=== PATIENT | female | born 1955 ===

== ENCOUNTER 2020-08-04 13:41 | Inpatient (IN) | payer MEDICAID ==
[~2020-08-04] VITALS: Ht 177.8 cm; Wt 88.6 kg
[2020-08-04 16:18] VITALS: BP 122/70
[2020-08-04] MEDS ORDERED: PLEASE ENTER ALLERGIES MC SCH (17:30)
[2020-08-04] MEDS ORDERED: LORazepam 2 MG/ML, 1ML IVPush PRN (17:30)
[2020-08-04] MEDS ORDERED: PLEASE ENTER HEIGHT AND WEIGHT MC SCH (17:30)
[2020-08-04] MEDS ORDERED: ONDANSETRON 2MG/ML, 2ML IVPush PRN (17:30)
[2020-08-04] MEDS ORDERED: hydrALAzine 20 MG/ML, 1ML IVPush PRN (17:30)
[2020-08-04] MEDS ORDERED: PROMETHAZINE 25 MG/ML, 1ML IM PRN (17:30)
[2020-08-04 18:25] VITALS: BP 126/74
[2020-08-04] MEDS: CEFTRIAXONE PMX 2GM/50ML 50 ML IVPB SCH (18:28)
[2020-08-04] MEDS: NICOTINE 14MG/24 HR PATCH.TD24 TD SCH (18:29)
[2020-08-04 18:57] LABS: INTERNATIONAL NORMALIZED RATIO 1.29 (0.93-1.1); PROTHROMBIN TIME 13.7 Seconds (9.6-11.5)
[2020-08-04] MEDS: SPIRONOLACTONE 25 MG TABLET PO SCH (19:51)
[2020-08-04] MEDS: LACTULOSE 10 GM/15 ML UDC PO SCH (19:51)
[2020-08-04] MEDS: RIFAXIMIN 550 MG TABLET PO SCH (19:51)
[2020-08-04] MEDS: CARVEDILOL 3.125 MG TABLET PO SCH (19:51)
[2020-08-05 01:02] VITALS: BP 147/86
[2020-08-05 04:25] LABS: MEAN CORPUSCULAR HEMOGLOBIN 34.2 pg (27.0-34.8); MEAN CORPUSCULAR HGB CONC 33.3 g/dL (32.4-35.8); PLATELET COUNT 77 x10^3/uL (130-400); RED BLOOD COUNT 3.42 x10^6/uL (3.82-5.3); RED CELL DISTRIBUTION WIDTH 16.7 % (9.6-15.2)
[2020-08-05 04:36] LABS: ALANINE AMINOTRANSFERASE 34 U/L (12-78); ALBUMIN 2.4 g/dL (3.4-5.0); ANION GAP 6 mmol/L (5-15); CHLORIDE 105 mmol/L (98-107); CREATININE 0.55 mg/dL (0.55-1.02)
[2020-08-05 04:44] LABS: ALKALINE PHOSPHATASE 165 U/L (45-117); BILIRUBIN,TOTAL 4.8 mg/dL (0.2-1.0); CALCIUM 7.8 mg/dL (8.5-10.1); CHOL/HDL RATIO 15.7; CHOLESTEROL, TOTAL 141 mg/dL (140-239); HDL CHOL % 6 % (28-40); HDL CHOLESTEROL (DIRECT) 9 mg/dL (40-60); LDL CHOLESTEROL,CALCULATED 86 mg/dL (54-169); LDL/HDL RATIO 9.6 (0.5-3.0); TOTAL PROTEIN 6.1 g/dL (6.4-8.2); TRIGLYCERIDES 229 mg/dL (50-200); VLDL CHOLESTEROL 46 mg/dL (0-25)
[2020-08-05 06:01] LABS: BAND#(MANUAL) 0.08 x10^3/uL; BANDS%(MANUAL) 5 % (0-7); EOS#(MANUAL) 0.05 x10^3/uL (0.0-0.4); EOS% (MANUAL) 3 % (1-7); LYMPH#(MANUAL) 0.32 x10^3/uL (1-3.4); LYMPHS% (MANUAL) 20 % (22-44); MONOS#(MANUAL) 0.21 x10^3/uL (0.3-2.7); MONOS% (MANUAL) 13 % (2-9); MYELOCYTES# (MANUAL) 0.02 x10^3/uL (0-0); MYELOCYTES% (MANUAL) 1 % (0-0); SEG#(MANUAL) 0.93 x10^3/uL (1.8-6.8); SEGS% (MANUAL) 58 % (42-75)
[2020-08-05 06:02] LABS: <PLATELET ESTIMATE> DECREASED; <PLT MORPHOLOGY> NORMAL PLT MORPH; ANISOCYTOSIS 1+
[2020-08-05 06:03] LABS: POLYCHROMASIA 1+
[2020-08-05] MEDS ORDERED: PANTOPRAZOLE 40MG TABLET PO SCH (07:30)
[2020-08-05 08:18] VITALS: BP 124/77
[2020-08-05] MEDS ORDERED: SPIRONOLACTONE 25 MG TABLET PO SCH (09:00)
[2020-08-05] MEDS ORDERED: FUROSEMIDE 20 MG/2 ML IV SCH (09:00)
[2020-08-05] MEDS: MULTIVITAMIN 1 TABLET PO SCH (09:51)
[2020-08-05] MEDS: LACTULOSE 10 GM/15 ML UDC PO SCH ×3 (09:51→20:22)
[2020-08-05] MEDS: THIAMINE 100MG TABLET PO SCH (09:51)
[2020-08-05] MEDS: FUROSEMIDE 20 MG/2 ML IV SCH (09:51)
[2020-08-05] MEDS: SPIRONOLACTONE 25 MG TABLET PO SCH (09:52)
[2020-08-05] MEDS: CARVEDILOL 3.125 MG TABLET PO SCH ×2 (09:53→20:22)
[2020-08-05] MEDS: RIFAXIMIN 550 MG TABLET PO SCH ×2 (09:53→20:22)
[2020-08-05 13:20] VITALS: BP 120/18
[2020-08-05] MEDS ORDERED: MAGNESIUM SULFATE PMX 2GM/50ML 50 ML IV ONE (14:00)
[2020-08-05] MEDS ORDERED: MAGNESIUM SULFATE PMX 2GM/50ML 50 ML ONE (14:05)
[2020-08-05] MEDS ORDERED: GADOTERATE 7.5 MMOL/15ML SYR ONE (15:48)
[2020-08-05] MEDS: K-PHOS NEUTRAL 250MG TAB PO SCH ×2 (16:42→20:22)
[2020-08-05] MEDS: CEFTRIAXONE PMX 2GM/50ML 50 ML IVPB SCH (18:13)
[2020-08-05] MEDS: NICOTINE 14MG/24 HR PATCH.TD24 TD SCH (18:13)
[2020-08-05 19:20] VITALS: BP 123/76
[2020-08-06 02:19] VITALS: BP 132/93
[2020-08-06 05:03] LABS: BASOPHILS % (AUTO) 1 % (0-1); EOSINOPHILS % (AUTO) 0 % (1-7); LYMPHOCYTES % (AUTO) 19 % (22-44); MEAN CORPUSCULAR HEMOGLOBIN 34.1 pg (27.0-34.8); MEAN CORPUSCULAR HGB CONC 33.2 g/dL (32.4-35.8); MEAN PLATELET VOLUME 9.8 fL (7.4-10.4); MONOCYTES % (AUTO) 18 % (2-9); NEUTROPHILS % (AUTO) 63 % (42-75); PLATELET COUNT 82 x10^3/uL (130-400); RED BLOOD COUNT 3.27 x10^6/uL (3.82-5.3)
[2020-08-06 05:12] LABS: ALBUMIN 2.2 g/dL (3.4-5.0); ANION GAP 4 mmol/L (5-15); CALCIUM 7.9 mg/dL (8.5-10.1); CHLORIDE 105 mmol/L (98-107)
[2020-08-06 05:16] LABS: ALANINE AMINOTRANSFERASE 36 U/L (12-78); ALKALINE PHOSPHATASE 157 U/L (45-117); BILIRUBIN,TOTAL 5.1 mg/dL (0.2-1.0); CREATININE 0.58 mg/dL (0.55-1.02); TOTAL PROTEIN 6.1 g/dL (6.4-8.2)
[2020-08-06 06:13] LABS: ANISOCYTOSIS 1+; BAND#(MANUAL) 0.08 x10^3/uL; BANDS%(MANUAL) 4 % (0-7); LYMPH#(MANUAL) 0.36 x10^3/uL (1-3.4); LYMPHS% (MANUAL) 19 % (22-44); METAMYELOCYTES# (MANUAL) 0.02 x10^3/uL (0-0); METAMYELOCYTES% (MANUAL) 1 % (0-1); MONOS#(MANUAL) 0.15 x10^3/uL (0.3-2.7); MONOS% (MANUAL) 8 % (2-9); SEG#(MANUAL) 1.29 x10^3/uL (1.8-6.8); SEGS% (MANUAL) 68 % (42-75)
[2020-08-06 06:14] LABS: <PLATELET ESTIMATE> DECREASED; <PLT MORPHOLOGY> NORMAL PLT MORPH; POLYCHROMASIA 1+
[2020-08-06 08:05] VITALS: BP 147/81
[2020-08-06] MEDS: MULTIVITAMIN 1 TABLET PO SCH (08:46)
[2020-08-06] MEDS: FUROSEMIDE 20 MG/2 ML IV SCH (08:46)
[2020-08-06] MEDS: RIFAXIMIN 550 MG TABLET PO SCH ×2 (08:46→20:11)
[2020-08-06] MEDS: SPIRONOLACTONE 25 MG TABLET PO SCH (08:47)
[2020-08-06] MEDS: THIAMINE 100MG TABLET PO SCH (08:47)
[2020-08-06] MEDS: CARVEDILOL 3.125 MG TABLET PO SCH ×2 (08:47→20:11)
[2020-08-06] MEDS: LACTULOSE 10 GM/15 ML UDC PO SCH ×3 (08:47→20:13)
[2020-08-06] MEDS: K-PHOS NEUTRAL 250MG TAB PO SCH ×3 (08:47→20:12)
[2020-08-06 14:11] VITALS: BP 117/79
[2020-08-06] MEDS: CEFTRIAXONE PMX 2GM/50ML 50 ML IVPB SCH (18:15)
[2020-08-06] MEDS: NICOTINE 14MG/24 HR PATCH.TD24 TD SCH (18:16)
[2020-08-06 18:38] VITALS: BP 134/82
[2020-08-07 01:53] VITALS: BP 128/76
[2020-08-07 05:31] LABS: MEAN CORPUSCULAR HEMOGLOBIN 33.8 pg (27.0-34.8); MEAN CORPUSCULAR HGB CONC 32.9 g/dL (32.4-35.8); MEAN PLATELET VOLUME 9.9 fL (7.4-10.4); PLATELET COUNT 106 x10^3/uL (130-400); RED BLOOD COUNT 3.42 x10^6/uL (3.82-5.3)
[2020-08-07 05:32] LABS: CHLORIDE 106 mmol/L (98-107)
[2020-08-07 05:39] LABS: ANION GAP 7 mmol/L (5-15); CREATININE 0.64 mg/dL (0.55-1.02)
[2020-08-07 05:40] LABS: ALANINE AMINOTRANSFERASE 48 U/L (12-78); ALBUMIN 2.2 g/dL (3.4-5.0); ALKALINE PHOSPHATASE 169 U/L (45-117); BILIRUBIN,TOTAL 4.7 mg/dL (0.2-1.0); TOTAL PROTEIN 6.4 g/dL (6.4-8.2)
[2020-08-07 05:57] LABS: BAND#(MANUAL) 0.25 x10^3/uL; BANDS%(MANUAL) 10 % (0-7); LYMPH#(MANUAL) 0.45 x10^3/uL (1-3.4); LYMPHS% (MANUAL) 18 % (22-44); MONOS#(MANUAL) 0.28 x10^3/uL (0.3-2.7); MONOS% (MANUAL) 11 % (2-9); REACTIVE LYMPHS # (MANUAL) 0.03 x10^3/uL (0-0); REACTIVE LYMPHS % (MANUAL) 1 % (0-0); SEGS% (MANUAL) 60 % (42-75)
[2020-08-07 05:58] LABS: <PLATELET ESTIMATE> DECREASED; <PLT MORPHOLOGY> NORMAL PLT MORPH; ANISOCYTOSIS 1+; POLYCHROMASIA 1+
[2020-08-07 07:42] VITALS: BP 133/99
[2020-08-07] MEDS: LACTULOSE 10 GM/15 ML UDC PO SCH ×3 (09:00→21:14)
[2020-08-07] MEDS: FUROSEMIDE 20 MG/2 ML IV SCH (09:22)
[2020-08-07] MEDS: SPIRONOLACTONE 25 MG TABLET PO SCH (09:22)
[2020-08-07] MEDS: RIFAXIMIN 550 MG TABLET PO SCH ×2 (09:22→21:13)
[2020-08-07] MEDS: THIAMINE 100MG TABLET PO SCH (09:23)
[2020-08-07] MEDS: MULTIVITAMIN 1 TABLET PO SCH (09:23)
[2020-08-07] MEDS: K-PHOS NEUTRAL 250MG TAB PO SCH ×3 (09:23→21:13)
[2020-08-07] MEDS: CARVEDILOL 3.125 MG TABLET PO SCH ×2 (09:23→21:14)
[2020-08-07] MEDS ORDERED: CHLORHEXIDINE 15 ML UDC ONE (10:27)
[2020-08-07] MEDS ORDERED: CHLORHEXIDINE 15 ML UDC PO ONE (10:30)
[2020-08-07] MEDS ORDERED: PROPOFOL 10 MG/ML, 20ML ONE (11:07)
[2020-08-07] MEDS ORDERED: PROMETHAZINE 25 MG SUPP PR PRN (11:30)
[2020-08-07] MEDS ORDERED: OXYcodone 5 MG/5 ML ORAL.SOL UDC PO PRN (11:30)
[2020-08-07] MEDS ORDERED: FENTANYL PF 100 MCG/2ML IV PRN (11:30)
[2020-08-07] MEDS ORDERED: PROMETHAZINE 25 MG/ML, 1ML IVPush PRN (11:30)
[2020-08-07] MEDS ORDERED: LORazepam 2 MG/ML, 1ML IVPush PRN (11:30)
[2020-08-07] MEDS ORDERED: ACETAMINOPHEN 325 MG TABLET PO PRN (11:30)
[2020-08-07] MEDS ORDERED: ONDANSETRON 2MG/ML, 2ML IVPush PRN (11:30)
[2020-08-07 13:47] LABS: MICROSCOPIC INDICATED
[2020-08-07 15:41] VITALS: BP 129/73
[2020-08-07] MEDS: CEFTRIAXONE PMX 2GM/50ML 50 ML IVPB SCH (17:57)
[2020-08-07] MEDS: NICOTINE 14MG/24 HR PATCH.TD24 TD SCH (17:57)
[2020-08-07 18:19] VITALS: BP 149/84
[2020-08-07] MEDS: MELATONIN 5 MG TABLET PO PRN (21:14)
[2020-08-08 02:12] VITALS: BP 142/78
[2020-08-08 05:51] LABS: BASOPHILS % (AUTO) 1 % (0-1); EOSINOPHILS % (AUTO) 0 % (1-7); LYMPHOCYTES % (AUTO) 19 % (22-44); MEAN CORPUSCULAR HEMOGLOBIN 33.7 pg (27.0-34.8); MEAN CORPUSCULAR HGB CONC 33.2 g/dL (32.4-35.8); MONOCYTES % (AUTO) 15 % (2-9); NEUTROPHILS % (AUTO) 65 % (42-75); PLATELET COUNT 108 x10^3/uL (130-400); RED BLOOD COUNT 3.19 x10^6/uL (3.82-5.3); RED CELL DISTRIBUTION WIDTH 16.8 % (9.6-15.2)
[2020-08-08 06:02] LABS: ALANINE AMINOTRANSFERASE 59 U/L (12-78); ALBUMIN 2.2 g/dL (3.4-5.0); ANION GAP 6 mmol/L (5-15); CALCIUM 8.2 mg/dL (8.5-10.1); CHLORIDE 105 mmol/L (98-107); CREATININE 0.58 mg/dL (0.55-1.02)
[2020-08-08 06:05] LABS: ALKALINE PHOSPHATASE 156 U/L (45-117); BILIRUBIN,TOTAL 4.6 mg/dL (0.2-1.0); TOTAL PROTEIN 6.3 g/dL (6.4-8.2)
[2020-08-08 06:23] VITALS: BP 162/82
[2020-08-08] MEDS: MULTIVITAMIN 1 TABLET PO SCH (08:22)
[2020-08-08] MEDS: THIAMINE 100MG TABLET PO SCH (08:22)
[2020-08-08] MEDS: K-PHOS NEUTRAL 250MG TAB PO SCH (08:22)
[2020-08-08] MEDS: CARVEDILOL 3.125 MG TABLET PO SCH ×2 (08:22→20:41)
[2020-08-08] MEDS: RIFAXIMIN 550 MG TABLET PO SCH ×2 (08:22→20:41)
[2020-08-08] MEDS: LACTULOSE 10 GM/15 ML UDC PO SCH ×3 (08:22→20:41)
[2020-08-08] MEDS: SPIRONOLACTONE 25 MG TABLET PO SCH (08:23)
[2020-08-08] MEDS: FUROSEMIDE 20 MG/2 ML IV SCH (08:23)
[2020-08-08 12:56] VITALS: BP 129/80
[2020-08-08 16:42] LABS: ANA SCREEN NEGATIVE (Negative)
[2020-08-08] MEDS: NICOTINE 14MG/24 HR PATCH.TD24 TD SCH (18:15)
[2020-08-08] MEDS ORDERED: CEFTRIAXONE PMX 2GM/50ML 50 ML IVPB SCH (18:30)
[2020-08-08 20:15] VITALS: BP_SYST 145; BP_SYST 154; BP_DIAS 82; BP_DIAS 90
[2020-08-08] MEDS: MELATONIN 5 MG TABLET PO PRN (20:41)
[2020-08-09 01:39] VITALS: BP 142/89
[2020-08-09] MEDS: OMEPRAZOLE 20 MG CAPSULE.DR PO SCH (05:03)
[2020-08-09 05:11] LABS: BASOPHILS % (AUTO) 0 % (0-1); EOSINOPHILS % (AUTO) 0 % (1-7); LYMPHOCYTES % (AUTO) 17 % (22-44); MEAN CORPUSCULAR HEMOGLOBIN 33.6 pg (27.0-34.8); MEAN CORPUSCULAR HGB CONC 33.6 g/dL (32.4-35.8); MEAN PLATELET VOLUME 9.9 fL (7.4-10.4); MONOCYTES % (AUTO) 14 % (2-9); NEUTROPHILS % (AUTO) 69 % (42-75); PLATELET COUNT 117 x10^3/uL (130-400); RED BLOOD COUNT 3.39 x10^6/uL (3.82-5.3)
[2020-08-09 05:21] LABS: ALANINE AMINOTRANSFERASE 85 U/L (12-78); ALBUMIN 2.3 g/dL (3.4-5.0); ANION GAP 7 mmol/L (5-15); CALCIUM 8.2 mg/dL (8.5-10.1); CHLORIDE 105 mmol/L (98-107); CREATININE 0.71 mg/dL (0.55-1.02)
[2020-08-09 05:23] LABS: ALKALINE PHOSPHATASE 173 U/L (45-117); BILIRUBIN,TOTAL 4.8 mg/dL (0.2-1.0); TOTAL PROTEIN 6.5 g/dL (6.4-8.2)
[2020-08-09 07:34] VITALS: BP 125/76
[2020-08-09] MEDS: RIFAXIMIN 550 MG TABLET PO SCH ×2 (09:21→20:13)
[2020-08-09] MEDS: MULTIVITAMIN 1 TABLET PO SCH (09:22)
[2020-08-09] MEDS: CARVEDILOL 3.125 MG TABLET PO SCH ×2 (09:22→20:13)
[2020-08-09] MEDS: SPIRONOLACTONE 25 MG TABLET PO SCH (09:22)
[2020-08-09] MEDS: FUROSEMIDE 40 MG TABLET PO SCH (09:22)
[2020-08-09] MEDS: LACTULOSE 10 GM/15 ML UDC PO SCH ×3 (09:22→20:14)
[2020-08-09] MEDS: THIAMINE 100MG TABLET PO SCH (09:22)
[2020-08-09 13:45] VITALS: BP 115/70
--- NOTE | 2020-08-09 16:11 | NUR ---
Posted green activity sheet and informed patient and RN
[2020-08-09] MEDS: NICOTINE 14MG/24 HR PATCH.TD24 TD SCH (17:52)
[2020-08-09 18:45] VITALS: BP 145/81
[2020-08-09] MEDS: MELATONIN 5 MG TABLET PO PRN (20:17)
[2020-08-10 02:02] VITALS: BP 138/76
[2020-08-10 05:03] LABS: BASOPHILS % (AUTO) 0 % (0-1); EOSINOPHILS % (AUTO) 0 % (1-7); LYMPHOCYTES % (AUTO) 16 % (22-44); MEAN CORPUSCULAR HEMOGLOBIN 33.2 pg (27.0-34.8); MEAN CORPUSCULAR HGB CONC 32.7 g/dL (32.4-35.8); MEAN PLATELET VOLUME 10.3 fL (7.4-10.4); MONOCYTES % (AUTO) 11 % (2-9); NEUTROPHILS % (AUTO) 73 % (42-75); PLATELET COUNT 119 x10^3/uL (130-400); RED BLOOD COUNT 3.37 x10^6/uL (3.82-5.3); RED CELL DISTRIBUTION WIDTH 17.1 % (9.6-15.2)
[2020-08-10 05:12] LABS: ALBUMIN 2.3 g/dL (3.4-5.0); ANION GAP 5 mmol/L (5-15); CALCIUM 8.6 mg/dL (8.5-10.1); CHLORIDE 107 mmol/L (98-107)
[2020-08-10 05:17] LABS: ALANINE AMINOTRANSFERASE 93 U/L (12-78); ALKALINE PHOSPHATASE 177 U/L (45-117); CREATININE 0.68 mg/dL (0.55-1.02); TOTAL PROTEIN 6.5 g/dL (6.4-8.2)
[2020-08-10] MEDS: OMEPRAZOLE 20 MG CAPSULE.DR PO SCH (06:12)
[2020-08-10 06:50] VITALS: BP 159/93
[2020-08-10] MEDS: LACTULOSE 10 GM/15 ML UDC PO SCH ×3 (09:03→20:09)
[2020-08-10] MEDS: CARVEDILOL 3.125 MG TABLET PO SCH ×2 (09:04→20:10)
[2020-08-10] MEDS: THIAMINE 100MG TABLET PO SCH (09:04)
[2020-08-10] MEDS: RIFAXIMIN 550 MG TABLET PO SCH ×2 (09:04→20:09)
[2020-08-10] MEDS: MULTIVITAMIN 1 TABLET PO SCH (09:04)
[2020-08-10] MEDS: SPIRONOLACTONE 25 MG TABLET PO SCH (09:04)
[2020-08-10] MEDS: FUROSEMIDE 40 MG TABLET PO SCH (09:04)
[2020-08-10 12:16] VITALS: BP 113/72
[2020-08-10 17:48] VITALS: BP 105/68
[2020-08-10] MEDS: NICOTINE 14MG/24 HR PATCH.TD24 TD SCH (18:42)
[2020-08-10 18:57] VITALS: BP 123/73
[2020-08-11 00:34] VITALS: BP 132/74
[2020-08-11 05:13] LABS: BASOPHILS % (AUTO) 1 % (0-1); EOSINOPHILS % (AUTO) 0 % (1-7); LYMPHOCYTES % (AUTO) 13 % (22-44); MEAN CORPUSCULAR HEMOGLOBIN 33.4 pg (27.0-34.8); MEAN CORPUSCULAR HGB CONC 33.5 g/dL (32.4-35.8); MEAN PLATELET VOLUME 9.9 fL (7.4-10.4); MONOCYTES % (AUTO) 9 % (2-9); NEUTROPHILS % (AUTO) 77 % (42-75); PLATELET COUNT 139 x10^3/uL (130-400); RED BLOOD COUNT 3.47 x10^6/uL (3.82-5.3); RED CELL DISTRIBUTION WIDTH 17.3 % (9.6-15.2)
[2020-08-11 05:29] LABS: ALANINE AMINOTRANSFERASE 116 U/L (12-78); ALBUMIN 2.4 g/dL (3.4-5.0); ANION GAP 6 mmol/L (5-15); CALCIUM 8.3 mg/dL (8.5-10.1); CHLORIDE 106 mmol/L (98-107)
[2020-08-11 05:31] LABS: ALKALINE PHOSPHATASE 196 U/L (45-117); BILIRUBIN,TOTAL 5.2 mg/dL (0.2-1.0); CREATININE 0.75 mg/dL (0.55-1.02); TOTAL PROTEIN 6.6 g/dL (6.4-8.2)
[2020-08-11] MEDS: OMEPRAZOLE 20 MG CAPSULE.DR PO SCH (05:57)
[2020-08-11 07:06] VITALS: BP 127/75
[2020-08-11] MEDS: LACTULOSE 10 GM/15 ML UDC PO SCH ×3 (09:02→22:11)
[2020-08-11] MEDS: SPIRONOLACTONE 25 MG TABLET PO SCH (09:02)
[2020-08-11] MEDS: CARVEDILOL 3.125 MG TABLET PO SCH ×2 (09:03→22:10)
[2020-08-11] MEDS: THIAMINE 100MG TABLET PO SCH (09:03)
[2020-08-11] MEDS: FUROSEMIDE 40 MG TABLET PO SCH (09:03)
[2020-08-11] MEDS: RIFAXIMIN 550 MG TABLET PO SCH ×2 (09:03→22:10)
[2020-08-11] MEDS: MULTIVITAMIN 1 TABLET PO SCH (09:03)
[2020-08-11 12:58] VITALS: BP 126/74
[2020-08-11] MEDS: NICOTINE 14MG/24 HR PATCH.TD24 TD SCH (18:30)
[2020-08-11 19:06] VITALS: BP 112/67
[2020-08-11 22:06] VITALS: BP 119/76
[2020-08-11] MEDS: MELATONIN 5 MG TABLET PO PRN (22:23)
[2020-08-12 00:48] VITALS: BP 117/77
[2020-08-12] MEDS: OMEPRAZOLE 20 MG CAPSULE.DR PO SCH (05:58)
[2020-08-12 07:46] VITALS: BP 127/75
[2020-08-12] MEDS: RIFAXIMIN 550 MG TABLET PO SCH ×2 (09:20→22:04)
[2020-08-12] MEDS: SPIRONOLACTONE 25 MG TABLET PO SCH (09:21)
[2020-08-12] MEDS: THIAMINE 100MG TABLET PO SCH (09:21)
[2020-08-12] MEDS: MULTIVITAMIN 1 TABLET PO SCH (09:21)
[2020-08-12] MEDS: CARVEDILOL 3.125 MG TABLET PO SCH ×2 (09:21→22:05)
[2020-08-12] MEDS: FUROSEMIDE 40 MG TABLET PO SCH (09:22)
[2020-08-12] MEDS: LACTULOSE 10 GM/15 ML UDC PO SCH ×3 (09:22→22:05)
[2020-08-12 12:46] VITALS: BP 109/65
[2020-08-12] MEDS: NICOTINE 14MG/24 HR PATCH.TD24 TD SCH (18:52)
[2020-08-12 19:30] VITALS: BP 105/68
[2020-08-12 22:04] VITALS: BP 105/69
[2020-08-12] MEDS: MELATONIN 5 MG TABLET PO PRN (22:10)
[2020-08-13 01:19] VITALS: BP 121/76
[2020-08-13] MEDS: OMEPRAZOLE 20 MG CAPSULE.DR PO SCH (05:33)
[2020-08-13 05:53] LABS: BASOPHILS % (AUTO) 1 % (0-1); EOSINOPHILS % (AUTO) 1 % (1-7); LYMPHOCYTES % (AUTO) 17 % (22-44); MEAN CORPUSCULAR HEMOGLOBIN 32.9 pg (27.0-34.8); MEAN CORPUSCULAR HGB CONC 32.8 g/dL (32.4-35.8); MEAN PLATELET VOLUME 9.7 fL (7.4-10.4); MONOCYTES % (AUTO) 8 % (2-9); NEUTROPHILS % (AUTO) 73 % (42-75); PLATELET COUNT 134 x10^3/uL (130-400); RED BLOOD COUNT 3.84 x10^6/uL (3.82-5.3); RED CELL DISTRIBUTION WIDTH 17.2 % (9.6-15.2)
[2020-08-13 06:10] LABS: CHLORIDE 104 mmol/L (98-107)
[2020-08-13 06:27] LABS: ALANINE AMINOTRANSFERASE 154 U/L (12-78); ALBUMIN 2.5 g/dL (3.4-5.0); ALKALINE PHOSPHATASE 190 U/L (45-117); ANION GAP 7 mmol/L (5-15); BILIRUBIN,TOTAL 4.9 mg/dL (0.2-1.0); CALCIUM 8.5 mg/dL (8.5-10.1); CREATININE 0.75 mg/dL (0.55-1.02); TOTAL PROTEIN 6.7 g/dL (6.4-8.2)
[2020-08-13 06:33] VITALS: BP 102/66
[2020-08-13] MEDS: MULTIVITAMIN 1 TABLET PO SCH (09:00)
[2020-08-13] MEDS: LACTULOSE 10 GM/15 ML UDC PO SCH ×3 (09:52→20:45)
[2020-08-13] MEDS: SPIRONOLACTONE 25 MG TABLET PO SCH (09:52)
[2020-08-13] MEDS: THIAMINE 100MG TABLET PO SCH (09:53)
[2020-08-13] MEDS: CARVEDILOL 3.125 MG TABLET PO SCH ×2 (09:53→20:45)
[2020-08-13] MEDS: RIFAXIMIN 550 MG TABLET PO SCH ×2 (09:53→20:45)
[2020-08-13] MEDS: FUROSEMIDE 40 MG TABLET PO SCH (09:53)
[2020-08-13 12:09] VITALS: BP 109/65
[2020-08-13] MEDS: NICOTINE 14MG/24 HR PATCH.TD24 TD SCH (17:17)
[2020-08-13 20:01] VITALS: BP 106/71
[2020-08-13] MEDS: MELATONIN 5 MG TABLET PO PRN (21:05)
[2020-08-14 00:56] VITALS: BP 98/57
[2020-08-14] MEDS: OMEPRAZOLE 20 MG CAPSULE.DR PO SCH (05:27)
[2020-08-14 08:31] VITALS: BP 101/67
[2020-08-14] MEDS: MULTIVITAMIN 1 TABLET PO SCH (09:00)
[2020-08-14] MEDS: THIAMINE 100MG TABLET PO SCH (09:37)
[2020-08-14] MEDS: SPIRONOLACTONE 25 MG TABLET PO SCH (09:37)
[2020-08-14] MEDS: RIFAXIMIN 550 MG TABLET PO SCH ×2 (09:37→20:05)
[2020-08-14] MEDS: LACTULOSE 10 GM/15 ML UDC PO SCH ×3 (09:39→20:06)
[2020-08-14] MEDS: FUROSEMIDE 40 MG TABLET PO SCH (09:40)
[2020-08-14] MEDS: CARVEDILOL 3.125 MG TABLET PO SCH ×2 (09:40→20:06)
[2020-08-14 09:42] VITALS: BP 108/72
[2020-08-14 12:23] VITALS: BP 105/72
[2020-08-14] MEDS ORDERED: LACT10SO24 PO (14:57)
[2020-08-14] MEDS ORDERED: MELA5TAB14 PO (14:57)
[2020-08-14] MEDS ORDERED: FURO40TA6 PO (14:57)
[2020-08-14] MEDS ORDERED: MULT-482 PO (14:57)
[2020-08-14] MEDS ORDERED: SPIR25TA PO (14:57)
[2020-08-14] MEDS ORDERED: OMEP-110 PO (14:57)
[2020-08-14] MEDS ORDERED: NICO-486 TD (14:57)
[2020-08-14] MEDS ORDERED: THIA100T67 PO (14:57)
[2020-08-14] MEDS ORDERED: RIFA550T4 PO (14:57)
[2020-08-14] MEDS ORDERED: CARV3.1212 PO (14:57)
[2020-08-14] MEDS: NICOTINE 14MG/24 HR PATCH.TD24 TD SCH (16:59)
[2020-08-14 19:30] VITALS: BP 106/72
== END 2020-08-14 20:34 | disposition home health service (06) | DRG 720 ==
LOC: 4WST 16:10 → EDBD 16:10 → 3N 08-10 17:28
PROVIDERS: ADMIT Hospitalist; ATTEND Internal Medicine
PROC: 0DB68ZX Excision of Stomach, Via Natural or Artificial Opening Endoscopic, Diagnostic (ICD-10-PCS; principal; 2020-08-07 11:30)
DX: A41.9 Sepsis, unspecified organism (principal); G93.40 Encephalopathy, unspecified; I50.33 Acute on chronic diastolic (congestive) heart failure; D61.818 Other pancytopenia; J91.8 Pleural effusion in other conditions classified elsewhere; F10.239 Alcohol dependence with withdrawal, unspecified; N39.0 Urinary tract infection, site not specified; K70.11 Alcoholic hepatitis with ascites; K72.90 Hepatic failure, unspecified without coma; Z20.822 Contact with and (suspected) exposure to COVID-19; E83.42 Hypomagnesemia; E87.6 Hypokalemia; F17.200 Nicotine dependence, unspecified, uncomplicated; F32.9 Major depressive disorder, single episode, unspecified; J44.9 Chronic obstructive pulmonary disease, unspecified; K70.31 Alcoholic cirrhosis of liver with ascites; K29.70 Gastritis, unspecified, without bleeding; R13.12 Dysphagia, oropharyngeal phase; R32 Unspecified urinary incontinence; Z79.899 Other long term (current) drug therapy
CPT/HCPCS: 36415; 70553; 71045; 74018; 76700; 80053; 80061; 81001; 82140; 83036; 83516; 83605; 83690; 83735; 84100; 84145; 84443; 85025; 85610; 86038; 86708; 86803; 87040; 87340; 87635; 88305; 93306; 93970; G0378; J0696; J2405; J2704; J7509; A9575; J1940; J3475